=== PATIENT | male | born 1940 | race Caucasian/White ===

== ENCOUNTER 2018-09-24 12:20 | Outpatient (CLI) | payer MEDICARE, BC ==
--- NOTE | 2018-09-24 14:32 | MRI ---
MRI LUMBAR SPINE WIHTOUT CONTRAST: INDICATION: Lumbar stenosis and right lower extremity pain. COMPARISON: Prior exam dated 08/11/2013 from [facility]. FINDINGS: At L5-S1, there is a mild broad-based disk bulge with mild facet joint degenerative change with mild neural foraminal encroachment on the left due mainly to the facet hypertrophy and loss of disk space height as well as the disk bulge at this level. This is stable to the prior exam. At L4-5, there is a broad-based disk bulge, grade I anterolisthesis, and advanced facet joint degener ative change. There is ligamentum flavum hypertrophy. There is moderate central canal narrowing whi ch has progressed from the prior exam. The previously seen synovial cyst appears to have somewhat re sorbed from the prior exam. The worsening central canal narrowing is mainly due to the facet hypertr ophy as well as ligamentum flavum hypertrophy. Anterolisthesis at this level appears new form the pr ior exam. At L3-4, there is a broad-based bulge with facet hypertrophy and ligamentum flavum hypertrophy induci ng mild central canal narrowing and mild bilateral neural foraminal narrowing which is stable. At L2-3, there is a broad-based bulge with facet joint degenerative change inducing mild central reggie l narrowing which is stable. At L1-2, here is no appreciable central canal or neural foraminal narrowing. T12-L1: There is no appreciable central canal or neural foraminal narrowing. IMPRESSION: 1. 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 G rade I anterolisthesis of L4 on L5 is new. 2. Stable mild central canal narrowing at L3-4 with mild bilateral neural foraminal narrowing. 3. Stable mild left neural foraminal narrowing at L5-S1. POS: CET
== END 2018-09-24 12:21 | disposition home or self-care (01) ==
LOC: SCSMRI 12:20
PROVIDERS: ATTEND Physical Medicine & Rehabilitation
DX: M48.061 Spinal stenosis, lumbar region without neurogenic claudication (principal); M48.07 Spinal stenosis, lumbosacral region; M79.604 Pain in right leg; M47.816 Spondylosis without myelopathy or radiculopathy, lumbar region; M43.16 Spondylolisthesis, lumbar region
CPT/HCPCS: 72148

== ENCOUNTER 2024-03-23 12:42 | Outpatient (CLI) | payer MEDICARE, BC | END 2024-03-23 12:43 | disposition home or self-care (01) | LOC: BICCT 12:42 | PROVIDERS: ATTEND Internal Medicine Hematology & Oncology | DX: C61 Malignant neoplasm of prostate (principal); R91.1 Solitary pulmonary nodule | CPT/HCPCS: 71250 ==

== ENCOUNTER 2024-06-21 10:50 | Outpatient (CLI) | payer MEDICARE, BC | END 2024-06-21 10:51 | disposition home or self-care (01) | LOC: BICMAMMO 10:50 | PROVIDERS: ATTEND Internal Medicine Hematology & Oncology | DX: M85.851 Other specified disorders of bone density and structure, right thigh (principal); M85.852 Other specified disorders of bone density and structure, left thigh | CPT/HCPCS: 77080 ==

== ENCOUNTER 2024-08-08 10:06 | Outpatient (CLI) | payer MEDICARE, BC | END 2024-08-08 10:07 | disposition home or self-care (01) | LOC: BICRAD 10:06 | PROVIDERS: ATTEND Internal Medicine Rheumatology | DX: M54.50 Low back pain, unspecified (principal); M47.816 Spondylosis without myelopathy or radiculopathy, lumbar region; M41.9 Scoliosis, unspecified; Z85.46 Personal history of malignant neoplasm of prostate | CPT/HCPCS: 72100 ==

== ENCOUNTER 2025-04-12 12:13 | Outpatient (CLI) | payer MEDICARE, BC | END 2025-04-12 12:14 | disposition home or self-care (01) | LOC: BICRAD 12:13 | PROVIDERS: ATTEND Family Medicine | DX: J18.9 Pneumonia, unspecified organism (principal); R91.8 Other nonspecific abnormal finding of lung field | CPT/HCPCS: 71046 ==

== ENCOUNTER 2025-05-15 11:33 | Outpatient (CLI) | payer MEDICARE, BC | END 2025-05-15 11:34 | disposition home or self-care (01) | LOC: BICRAD 11:33 | PROVIDERS: ATTEND Family Medicine | DX: J18.9 Pneumonia, unspecified organism (principal); R91.8 Other nonspecific abnormal finding of lung field | CPT/HCPCS: 71046 ==